=== PATIENT | male | born 1965 | race Caucasian/White ===

== ENCOUNTER → 2017-01-28 | Outpatient (CLI) | payer MEDICARE ==
[~2017-01-28] MED LIST: ALBU18HF4 IH; ALBU2.5V2 AEROSOL; DOCU-168 PO; FLUT1DIS5 ORAL INH; LISI-621 PO; OMEP40CA52 PO; OXYC-541 PO
[2017-01-28 14:56] LABS: BASOPHILS % (AUTO) 0.5 % (0-2); EOSINOPHILS # (AUTO) 0.2 T/MM3 (0-0.5); EOSINOPHILS % (AUTO) 2.1 % (0-4); HCT - HEMATOCRIT 43.1 % (41-53); HGB - HEMOGLOBIN 14.4 GM/DL (13.5-17.5); IMMATURE GRANULOCYTE # (AUTO) 0.01 T/MM3 (0.00-0.03); IMMATURE GRANULOCYTE % (AUTO) 0.1 % (0.0-0.5); LYMPHOCYTES # (AUTO) 2.6 T/MM3 (1-4.8); LYMPHOCYTES % (AUTO) 30.6 % (23-45); MEAN CORPUSCULAR HGB 29.9 UUG (26-34); MEAN CORPUSCULAR HGB CONC(MCHC 33.4 GM/DL (31-37); MEAN CORPUSCULAR VOLUME 89.4 UM3 (80-100); MEAN PLATELET VOLUME 8.7 UM3 (9.4-12.4); MONOCYTES # (AUTO) 0.6 T/MM3 (0-0.8); MONOCYTES % (AUTO) 6.7 % (0-9.0); NEUTROPHILS #(AUTO)-ABSOLUTE 5.1 T/MM3 (1.8-7.7); RED BLOOD COUNT 4.82 M/MM3 (4.50-5.90); WBC - WHITE BLOOD COUNT 8.5 T/MM3 (4.5-11.0)
[2017-01-28 15:06] LABS: ALBUMIN 4.4 G/DL (3.5-5.0); ALBUMIN/GLOBULIN RATIO 1.5 RATIO (1.1-2.2); ALKALINE PHOSPHATASE 67 U/L (38-126); ALT (SGPT) 36 U/L (21-72); ANION GAP 9 MEQ/L (5-15); AST (SGOT) 29 U/L (17-59); BUN/CREATININE RATIO 10 RATIO (6-26); CALCIUM 9.7 MG/DL (8.4-10.2); CHLORIDE 107 MEQ/L (98-107); CO2 - CARBON DIOXIDE 25 MEQ/L (22-30); CREATININE 0.8 MG/DL (0.8-1.5); GLOMERULAR FILTRATION RATE 102; GLUCOSE 112 MG/DL (75-110); POTASSIUM 4.2 MEQ/L (3.6-5); SODIUM 141 MEQ/L (134-144); TOTAL PROTEIN 7.4 G/DL (6.3-8.2)
--- NOTE | 2017-01-28 15:13 | DI ---
INDICATION: ITS.REASON: R07.9 CHEST PAIN PROCEDURE: CHEST 2-VIEWS UPRIGHT (PA \T\ LAT) Encounter: Initial COMPARISON: May 22, 2013 FINDINGS: The lungs are clear without evidence of focal abnormal airspace opacity. There is no pleural effusion or pneumothorax. There is a 1.3 cm calcified density projecting over the right upper abdomen. I am unable to definitely visualize this on the lateral view. This could represent a calcified liver granuloma, gallstone or be external to the patient. The heart size, mediastinal contours and pulmonary vascularity are within normal limits. There is no significant skeletal abnormality. IMPRESSION: No acute cardiopulmonary disease. .
[2017-02-01 03:17] LABS: LDL CHOLESTEROL,CALCULATED 173.6 (66-159); RISK FACTOR 6.8 RATIO (0-5.0); VLDL CHOLESTEROL 33.4 MG/DL (0-28)
== END ==
LOC: IMA 14:42
PROVIDERS: ATTEND Family Medicine
DX: R07.9 Chest pain, unspecified (principal)
CPT/HCPCS: 36415; 80053; 80061; 84484; 85025